=== PATIENT | female | born 1945 | race Caucasian/White ===

== ENCOUNTER → 2021-08-13 13:14 | Outpatient (CLI) | payer MEDICARE, SELFPAY ==
--- NOTE | ~2021-08-13 | DEXA_ITS ---
Bone Density Report Name: JALEN MOHR Age: 75 Sex: Female Ethnicity: White Date of : 1945 Indication: osteopenia; postmenopausal Referring Provider: Arthur, Rupert Reeder Study: Bone densitometry was performed. Exam Date: August 13, 2021 Accession number: [id number] Bone Density: Region BMD T-score Z-score Classification AP Spine (L1-L4) 1.113 0.6 2.9 Normal Femoral Neck (Left) 0.697 -1.4 0.6 Osteopenia Total Hip (Left) 0.805 -1.1 0.6 Osteopenia Femoral Neck (Right) 0.650 -1.8 0.2 Osteopenia Total Hip (Right) 0.856 -0.7 1.0 Normal Total Hip Mean 0.831 -0.9 0.8 Normal World Health Organization criteria for BMD impression classify patients as: Normal (T-score at or above -1.0), Osteopenia (T-score between -1.0 and -2.5), or Osteoporosis (T-score at or below -2.5). 10-year Fracture Risk(1): Major Osteoporotic Fracture 11% Hip Fracture 2.2% Reported Risk Factors: [place] (), Neck BMD=0.650, BMI=31.9 (1) FRAX(R) Version 3.08. Fracture probability calculated for an untreated patient. Fracture probability may be lower if the patient has received treatment. Previous Exams: Region Exam Age BMD T-score BMD Change BMD Change Date g/cm2 vs Baseline vs Previous AP Spine(L1-L4) 08/13/2021 75 1.113 0.6 0.064* 0.145* 10/16/2007 62 0.968 -0.7 -0.081* -0.081* 08/22/2006 60 1.049 0.0 Total Hip(Left) 08/13/2021 75 0.805 -1.1 0.014 0.041* 10/16/2007 62 0.764 -1.5 -0.027 -0.027 08/22/2006 60 0.791 -1.2 Total Hip(Right) 08/13/2021 75 0.856 -0.7 -0.015 0.076* 10/16/2007 62 0.779 -1.3 -0.091* -0.091* 08/22/2006 60 0.871 -0.6 *Denotes significance at 95% confidence level, LSC for AP Spine = 0.022 g/cm2, LSC for Total Hip = 0.027 g/cm2 Clinical Information Provided by Patient: Has used the following medications: Vitamin D Patient maximum height was 64 Menopause Age: 54 No regular weight bearing exercise Does not regularly consume dairy products Drinks caffeinated beverages Onset of menses at age 14 Number of children 2 Impression: The patient has low bone mass, based on the Right Femoral Neck T-score. The patient has an estimated ten-year risk of hip fracture of 2.2% and an estimated ten-year risk of major fracture of 11%, based on the WHO FRAX algorithm. No significant bone loss was observed.
== END ==
PROVIDERS: PCP Internal Medicine; Visit Provider Internal Medicine
DX: Z78.0 Asymptomatic menopausal state (principal); M85.852 Other specified disorders of bone density and structure, left thigh; M85.851 Other specified disorders of bone density and structure, right thigh
CPT/HCPCS: 77080

== ENCOUNTER 2022-03-04 01:00 | Day surgery (SDC) | payer MEDICARE, SELFPAY ==
[2022-02-21 15:05] VITALS: BMI 31.8
[2022-03-04 11:59] VITALS: BP 124/63; PULSE 99; RESP 20; TEMP 36.4; O2SAT 97
[2022-03-04] MEDS: LACTATED RINGERS 1,000 ML 150 ML IV CONT ×2 (12:06→14:40)
--- NOTE | 2022-03-04 13:30 | P.PNAN_ITS ---
Anes - Initial Pre Proc Eval Procedure: Operation Date: 03/04/22 14:30 Proposed Procedures p Screening Colonoscopy - Efrain Burns MD Date/Time: 03/04/22 13:30 Surgeon: Efrain Burns MD Pre Op Diagnosis: Hx of colon polyps Patient Data Age: 76 Gender: F Height: 1.63 m Weight: 81.7 kg Last Vital Signs Temp 36.4 C 03/04/22 11:59 Pulse 99 03/04/22 11:59 Resp 20 03/04/22 11:59 BP 124/63 03/04/22 11:59 Pulse Ox 97 03/04/22 11:59 O2 Del Method Room Air 03/04/22 11:59 Allergies Allergy/AdvReac Type Severity Reaction Status Date / Time No Known Allergies Allergy Verified 03/04/22 11:56 Home Medications Medication Instructions Recorded Confirmed Type alprazolam 0.25 mg tablet 0.25 mg PO TID 02/21/22 02/21/22 History metoprolol succinate 25 mg 25 mg PO DAILY 02/21/22 02/21/22 History tablet,extended release 24 hr primidone 50 mg tablet 50 mg PO HS 02/21/22 02/21/22 History rosuvastatin 10 mg tablet 10 mg PO DAILY 02/21/22 02/21/22 History sertraline 50 mg tablet 50 mg PO DAILY 02/21/22 02/21/22 History Patient hx anesthesia problems: none Family hx anesthesia problems: none Results Review: All pre-operative results and documents have been reviewed as part of the pre- operative evaluation. [facility] Past Medical History Medical History Anxiety Essential tremor Hyperlipidemia Social History Social History Smoking packs per day: 0.5 Smoking cigarettes per day: 10.0 Years smoked: 30 Smoking pack-years: 15.00 Smoking status: Former smoker Tobacco type: cigarettes Alcohol intake: never Substance use: never Substance use type: does not use Living arrangements: with family Spiritual care concerns: No Anes - Eval Final PreProcedure Day of Procedure 03/04/22 13:30 Patient weight: obese Heart: regular rate and rhythm Lungs: clear to auscultation Airway: Mallampati scale class II Neurological: alert and oriented Last oral intake: >/= 8 hours ASA classification: III Emergent: no Anesthetic plan: proceed Anesthesia type and monitoring: general GIVS and standard monitoring Results Review: All pre-operative results and documents have been reviewed as part of the pre- operative evaluation. Informed Consent: The patient's anesthetic plan and its attendant risks and benefits were discussed with the patient/family/POA. Questions were solicited and answers provided to the satisfaction of the patient/family/POA.
--- NOTE | 2022-03-04 13:55 | PM.HPGS ---
History of Present Illness History of Present Illness Consent: Risks, benefits, and alternatives have been discussed and questions answered. Patient agrees to proceed with procedure. Chief complaint: Hx of colon polyps Narrative: Juju Chowdhury is a 76 year old female Referred for colon cancer screening. She has a history of poly Review of Systems Review of Systems: All systems reviewed & are unremarkable except as noted in HPI and below PMFSH Past Medical History Medical History Anxiety Essential tremor Hyperlipidemia Social History Social History Smoking packs per day: 0.5 Smoking cigarettes per day: 10.0 Years smoked: 30 Smoking pack-years: 15.00 Smoking status: Former smoker Tobacco type: cigarettes Alcohol intake: never Substance use: never Substance use type: does not use Living arrangements: with family Spiritual care concerns: No Meds Home Medications and Allergies Home Medications Medication Instructions Recorded Confirmed Type alprazolam 0.25 mg tablet 0.25 mg PO TID 02/21/22 02/21/22 History metoprolol succinate 25 mg 25 mg PO DAILY 02/21/22 02/21/22 History tablet,extended release 24 hr primidone 50 mg tablet 50 mg PO HS 02/21/22 02/21/22 History rosuvastatin 10 mg tablet 10 mg PO DAILY 02/21/22 02/21/22 History sertraline 50 mg tablet 50 mg PO DAILY 02/21/22 02/21/22 History Allergies Allergy/AdvReac Type Severity Reaction Status Date / Time No Known Allergies Allergy Verified 03/04/22 11:56 Vital Signs Vital Signs - 24 hr 03/04/22 11:59 Temperature 36.4 C Pulse Rate 99 Respiratory Rate 20 Blood Pressure 124/63 Pulse Oximetry 97 Oxygen Delivery Room Air Exam Const: General: alert Orientation/consciousness: patient oriented x3 Resp: Auscultation: clear to auscultation bilaterally Cardio: Rhythm: regular rhythm GI: GI Palp: Yes Soft to palpation and No Tenderness to palpation present (GI) Neuro: General: patient oriented x3 Assessment and Plan Assessment and plan (1) Colon cancer screening: Code(s): Z12.11 - Encounter for screening for malignant neoplasm of colon Status: Acute Assessment and Plan: Colonoscopy with possible biopsy or polypectomy or cautery or injection of substances.
[2022-03-04 14:43] VITALS: BP 90/50; PULSE 71; RESP 23; O2SAT 93
[2022-03-04 14:53] VITALS: BP 101/59; PULSE 70; RESP 20; O2SAT 96
[2022-03-04 15:03] VITALS: BP 128/63; PULSE 61; RESP 16; O2SAT 99
== END 2022-03-04 15:14 | disposition home or self-care (01) ==
PROVIDERS: PCP Internal Medicine; Visit Provider Internal Medicine Gastroenterology
PROC: 0DJD8ZZ Inspection of Lower Intestinal Tract, Via Natural or Artificial Opening Endoscopic (ICD-10-PCS; CPT 45378; principal; 2022-03-04 14:30)
DX: Z12.11 Encounter for screening for malignant neoplasm of colon (principal); K64.8 Other hemorrhoids; K57.30 Diverticulosis of large intestine without perforation or abscess without bleeding; Z86.010 Personal history of colon polyps; I10 Essential (primary) hypertension; F41.9 Anxiety disorder, unspecified; G25.0 Essential tremor; Z87.891 Personal history of nicotine dependence; E66.9 Obesity, unspecified; Z68.30 Body mass index [BMI] 30.0-30.9, adult
CPT/HCPCS: G0105; J2704; J7120